=== PATIENT | male | born 1995 | race Caucasian/White ===

== ENCOUNTER 2018-11-25 13:48 | Emergency (ER) | payer OTHER ==
--- NOTE | 2018-11-25 14:05 | EDPHY ---
H & P Stated Complaint: R ankle injury Time Seen by Provider: 11/25/18 14:01 HPI/ROS: HPI: This is a 23-year-old male who presents with Chief Complaint: Right ankle injury Location: Right ankle Quality: Injury Duration: Last night around 1:00 a.m. Signs and Symptoms: No bleeding, no radiation, no numbness, no weakness, no tingling, no incontinence, no decreased range of motion, + swelling, + pain, no fever Timing: Acute Severity: 04/27 Context: Patient reports he was walking down the stairs around 1:00 a.m. Yesterday morning when he missed the last step and [place] it his right ankle. He reports that he felt immediate, constant, nonradiating, moderate pain in the lateral aspect of his right ankle. He also heard a "popping sound." He reports that he has increased pain with ambulation. He woke up this morning with increased swelling in the lateral aspect. Denies radiation, weakness, paresthesias. Obtain crutches from a friend that he has been using to aid ambulation. Modifying Factors: He is not taking any [id number] medications or applied ice. Comment: ROS: A comprehensive 10 system review of systems is otherwise negative aside from elements mentioned in the history of present illness. MEDICAL/SURGICAL/SOCIAL HISTORY: Medical history: Generally healthy. Does not take any regular medications. Surgical history: Tonsillectomy Social history: Former smoker. CONSTITUTIONAL: Well-developed, well-nourished young adult white male, polite and cooperative, awake and alert, no obvious distress HEENT: Atraumatic and normocephalic. NECK: supple, no midline tenderness, flexion 45 degrees, extension 45 degrees, right and left lateral flexion 45 degrees. No meningismus. Cardiovascular: Normal S1/S2, regular rate, regular rhythm, without murmur rub or gallop. PULMONARY/CHEST: Symmetrical and nontender. Clear to auscultation bilaterally. Good air movement. No accessory muscle usage. ABDOMEN: Soft, nondistended, nontender. EXTREMITIES: 2/2 pulses, strength 5/5, right Ankle: Moderate swelling over the lateral malleolus; Plantar flexion to 50, dorsiflexion to 20. Foot inversion to 35 degree. Moderate tenderness/swelling Anterior talofibular ligament. Mild tenderness/swelling Calcaneofibular ligament, no tenderness/ swelling posterior talofibular ligament, no tenderness/swelling posterior inferior tibiofibular ligament. Achilles tendon intact. DIP/PIP/MCP flexion/ extension intact with good light touch sensation. no deformities, no clubbing, no cyanosis or edema. NEUROLOGICAL: no focal neuro deficits. GCS 15. Light touch sensation intact. SKIN: Warm and dry, no erythema. no rash. Good capillary refill. Source: Patient Exam Limitations: No limitations - Personal History Current Tetanus/Diphtheria Vaccine: Yes Current Tetanus Diphtheria and Acellular Pertussis (TDAP): Yes - Medical/Surgical History Hx Asthma: No Hx Chronic Respiratory Disease: No Hx Diabetes: No Hx Cardiac Disease: No Hx Renal Disease: No Hx Cirrhosis: No Hx Alcoholism: No Hx HIV/AIDS: No Hx Splenectomy or Spleen Trauma: No Other PMH: tonsilectomy - Social History Smoking Status: Former smoker Constitutional: Initial Vital Signs Temperature (C) 37 C 11/25/18 13:51 Heart Rate 72 11/25/18 13:51 Respiratory Rate 16 11/25/18 13:51 Blood Pressure 132/79 H 11/25/18 13:51 O2 Sat (%) 98 11/25/18 13:51 O2 Delivery Mode Room Air Allergies/Adverse Reactions: Penicillins Allergy (Verified 11/25/18 13:51) Home Medications: Medication Instructions Recorded NK [No Known Home Meds] 11/25/18 Medical Decision Making - Diagnostics Imaging Results: Imaging Impressions Ankle X-Ray 11/25/18 13:54 Impression: Ankle sprain. Indeterminate age navicular avulsion. Procedures: Procedure: Splint placement. A right Ling boot and crutches were applied by the Emergency Room alarm service technician. After application of the splint I returned and re-examined the patient. The splint was adequately immobilizing the joint and distal to the splint the patient's circulation and sensation was intact. ED Course/Re-evaluation: Ice pack applied and right x-ray ordered X-ray my read shows no acute fracture, dislocation. Question age indeterminate navicular avulsion fracture. Placed in Ling boot, crutches with orthopedic follow-up as needed. Start with toe-touch weight-bearing status. No signs of neurovascular compromise/tenting of skin/compartment syndrome/ extremities and joints examined above and below area of concern and are neurovascularly intact. This patient was seen under the supervision of my secondary supervising physician. I evaluated care for this patient with attending. Discussed this patient with Dr. Joyce. Differential Diagnosis: Ankle injury differential diagnosis includes but is not limited to tibia fracture, fibula fracture, metatarsal fracture, LisFranc fracture, achilles tendon rupture, sprain. Departure - Departure Disposition: Home, Routine, Self-Care Clinical Impression: Sprain of right ankle Qualifiers: Encounter type: initial encounter Involved ligament of ankle: unspecified ligament Qualified Code(s): S93.401A - Sprain of unspecified ligament of right ankle, initial encounter Condition: Good Instructions: Ankle Sprain (DC), Crutch Instructions (ED) Additional Instructions: Wear the walking boot while out of bed until pain free or until seen by Orthopedics. Use crutches to aid ambulation. Start with toe-touch weight-bearing status. Take Tylenol 650 mg every 4 hours and/or Ibuprofen 600 mg every 8 hours with food as needed for pain. Apply ice for 30 minutes at a time; 2-3 times per day for the next 1-2 days. Follow up with Orthopedics in 7-10 days if symptoms persist at which time they will evaluate and recommend with you if conservative management versus MRI is indicated. The x-rays obtained in the emergency department today demonstrate no evidence of an obvious fracture. Sometimes fractures are not obvious on the initial set of x-rays performed in the ED. For this reason, you should have repeat x-rays performed in 7-10 days if you are having any pain exclude the possibility of an occult fracture. Referrals: [facility] [Other] - As per Instructions Lonnie Dobson MD [Medical Doctor] - As per Instructions
[2018-11-25 15:08] VITALS: BP 146/79
== END 2018-11-25 15:06 | disposition home or self-care (01) ==
DX: S93.401A Sprain of unspecified ligament of right ankle, initial encounter (principal); X50.9XXA Other and unspecified overexertion or strenuous movements or postures, initial encounter; Y92.9 Unspecified place or not applicable; Y99.9 Unspecified external cause status; Y93.9 Activity, unspecified; Z87.891 Personal history of nicotine dependence; Z88.0 Allergy status to penicillin
CPT/HCPCS: L4386